=== PATIENT | female | born 1980 | race Caucasian/White ===

== ENCOUNTER 2016-07-23 15:19 | Emergency (ER) | payer OTHER, MEDICAID ==
[~2016-07-23 15:19] MED LIST: PERM5CRE TOP; ZOFR4TAB3 SL
[2016-07-23 16:34] VITALS: BP 127/61; TEMP 101.1
[2016-07-23 16:39] VITALS: BP 127/61; PULSE 108; RESP 18; TEMP 101.1; O2SAT 100
--- NOTE | 2016-07-23 17:26 | HHI.PR ---
Subjective Remarks LACERATION LOCATION: Left hand - dorsal aspect LENGTH: 3cm NUMBER OF STITCHES/MAK: 2 vicryl, 8 prolene REPAIR: The area of the laceration was prepped with Betadine and sterilely draped. The laceration was infiltrated with lidocaine. The wound was copiously irrigated and explored without evidence of foreign body, tendon injury or neurovascular injury. Hemostasis was achieve with 2x 6-0 vicryl cutures. The wound was closed using 8x 5-0 prolene sutures. This was a 1 layer repair. A sterile dressing was applied. The patient was advised to keep the dressing clean and dry. Patient tolerated the procedure well. Objective Vital Signs Date Time Temp Pulse Resp B/P Pulse Ox O2 Delivery O2 Flow Rate FiO2 07/23/16 16:39 101.1 108 18 127/61 100 07/23/16 16:34 101.1 108 18 127/61 Donta Gay MD R1 Jul 23, 2016 17:26
[2016-07-23 17:31] VITALS: PULSE 87; RESP 18; TEMP 99.3; O2SAT 100
[2016-07-23] MEDS ORDERED: ROBA750T PO (17:31)
[2016-07-23] MEDS ORDERED: IBUP-232 PO (17:31)
[2016-07-23] MEDS ORDERED: CEPH-460 PO (17:31)
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
== END 2016-07-23 17:45 | disposition home or self-care (01) ==
LOC: NEPD 15:19
DX: S61.412A Laceration without foreign body of left hand, initial encounter (principal); S80.02XA Contusion of left knee, initial encounter; V43.52XA Car driver injured in collision with other type car in traffic accident, initial encounter
CPT/HCPCS: 12002

== ENCOUNTER 2016-08-02 11:52 | Emergency (ER) | payer OTHER, MEDICAID ==
[~2016-08-02] VITALS: Ht 162.6 cm; Wt 58.0 kg
[~2016-08-02 11:52] MED LIST changes: +CEPH-460 PO; +IBUP-232 PO; -PERM5CRE TOP; +ROBA750T PO; -ZOFR4TAB3 SL
[2016-08-02 11:54] VITALS: BP 107/69; PULSE 78; RESP 16; TEMP 97.8; O2SAT 99
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
== END 2016-08-02 12:46 | disposition home or self-care (01) ==
LOC: NEPB 11:52
DX: S61.412D Laceration without foreign body of left hand, subsequent encounter (principal); Z48.02 Encounter for removal of sutures; Z72.0 Tobacco use; Z87.39 Personal history of other diseases of the musculoskeletal system and connective tissue; Z87.42 Personal history of other diseases of the female genital tract; X58.XXXD Exposure to other specified factors, subsequent encounter
CPT/HCPCS: 99281